=== PATIENT | female | born 1925 | race Caucasian/White ===

== ENCOUNTER 2017-11-29 21:25 | Inpatient (IN) | payer MEDICARE, BC ==
[~2017-11-29] VITALS: Ht 162.6 cm; Wt 50.9 kg
[~2017-11-29 21:25] MED LIST: ATOR40TA71 PO; CARV6.2530 PO; CINA30TA2 PO; CLOP75TA4 PO; LISI-600 PO; LORA0.5T PO; METO-395 PO; NITR0.4T51
[2017-11-29 22:52] LABS: BASOPHILS % (AUTO) 0.5 % (0-1); EOSINOPHILS # (AUTO) 0.5 X10'3 (0-0.9); EOSINOPHILS % (AUTO) 6.8 % (0-6); HEMATOCRIT 34.2 % (35.0-45.0); HEMOGLOBIN 11.7 g/dl (12.0-16.0); LYMPHOCYTES # (AUTO) 2.3 X10'3 (1.1-4.8); LYMPHOCYTES % (AUTO) 30.3 % (21-51); MEAN CORPUSCULAR HEMOGLOBIN 29.9 PG (27.0-31.0); MEAN CORPUSCULAR HGB CONC 34.1 % (33.0-36.5); MEAN CORPUSCULAR VOLUME 87.9 FL (78-98); MEAN PLATELET VOLUME 7.5 FL (7.4-10.4); MONOCYTES # (AUTO) 0.9 X10'3 (0-0.9); MONOCYTES % (AUTO) 11.2 % (2-12); NEUTROPHILS % (AUTO) 51.2 % (42-75); PLATELET COUNT 145 X10'3 (140-440); RED CELL DISTRIBUTION WIDTH 14.4 % (11.5-14.5); WHITE BLOOD COUNT 7.7 X10'3 (4.5-11.0)
[2017-11-29 23:12] LABS: PARTIAL THROMBOPLASTIN TIME 26 SECONDS (22-32)
[2017-11-29 23:15] LABS: ALANINE AMINOTRANSFERASE 22 U/L (12-78); ALBUMIN 3.6 G/DL (3.4-5.0); ALBUMIN/GLOBULIN RATIO 1.2 (1.1-1.5); ALKALINE PHOSPHATASE 34 IU/L (46-116); ANION GAP 8 (8-16); ASPARTATE AMINO TRANSFERASE 22 U/L (10-37); BILIRUBIN,TOTAL 0.4 MG/DL (0.1-1.0); BLOOD UREA NITROGEN 19 MG/DL (7-18); BUN/CREATININE RATIO 23.2 (6.6-38.0); CALCIUM 7.9 MG/DL (8.5-10.1); CHLORIDE 105 MMOL/L (99-107); CREATININE 0.82 MG/DL (0.40-0.90); GLUCOSE 106 MG/DL (70-104); POTASSIUM 3.9 MMOL/L (3.5-5.1); SODIUM 140 MMOL/L (135-145); TOTAL CARBON DIOXIDE 27.5 MMOL/L (24-32); TOTAL PROTEIN 6.6 G/DL (6.4-8.2); eGFR 66 ML/MIN
[2017-11-29] MEDS ORDERED: normal saline 1000ML IV soln IVB ONE (23:45)
[2017-11-29] MEDS ORDERED: magnesium 1 gm/2ml inj. 1 GM in normal saline 50ml IV soln 48 ML IV ONE (23:45)
[2017-11-29] MEDS: potassium chloride 10mEq CAPSULE.SA PO SCH (23:45)
[2017-11-30] MEDS ORDERED: potassium Cl 20 mEq SR tablet PO STA (00:08)
[2017-11-30] MEDS ORDERED: magnesium 1 gm/2ml inj. 1 GM in normal saline 50ml IV soln 48 ML IV ONE ×2 (00:15→00:25)
[2017-11-30] MEDS: potassium chloride 10mEq CAPSULE.SA PO SCH (00:28)
[2017-11-30] MEDS ORDERED: potassium Cl 40MEQ/NS 500ml 500 ML IV PRN ×2 (00:35)
[2017-11-30] MEDS ORDERED: magnesium hydroxide 30ml (MOM) UD suspension PO PRN (00:35)
[2017-11-30] MEDS ORDERED: magnesium 2GM in 50ml NS 50 ML IV PRN (00:35)
[2017-11-30] MEDS ORDERED: ondansetron/PF 4mg/2ml inj IV PRN (00:35)
[2017-11-30] MEDS ORDERED: mag hydrox/Alum hydrox/simeth 30ml oral suspension PO PRN (00:35)
[2017-11-30] MEDS ORDERED: potassium Cl 20 mEq SR tablet PO PRN ×2 (00:35)
[2017-11-30] MEDS ORDERED: magnesium 4gm in 100ml NS 100 ML IV PRN (00:35)
[2017-11-30] MEDS ORDERED: magnesium Cl slow-release 64mg tablet PO PRN (00:35)
[2017-11-30] MEDS ORDERED: HYDROmorphone 1 mg/ml syringe IV PRN ×2 (00:35)
[2017-11-30] MEDS ORDERED: acetaminophen 325mg tablet PO PRN (00:35)
[2017-11-30 01:12] LABS: PHOSPHORUS 3.2 MG/DL (2.3-4.5)
[2017-11-30] MEDS: normal saline 1000ml 1,000 ML IV SCH ×3 (01:37→17:27)
[2017-11-30] MEDS: levoFLOXACIN-Levaquin 750MG/D5 150 ML IV SCH ×2 (01:37→21:13)
[2017-11-30 04:14] VITALS: BP 117/53
[2017-11-30 06:00] VITALS: BP 108/41
[2017-11-30] MEDS ORDERED: carvedilol 6.25mg tablet PO SCH (08:00)
[2017-11-30] MEDS: K and/or MAG REPLACEMENT MC SCH (08:00)
[2017-11-30] MEDS ORDERED: oseltamivir phos 75mg capsule PO SCH (08:00)
[2017-11-30] MEDS: calcium carbonate 500mg chew tablet PO SCH ×3 (08:21→17:21)
[2017-11-30] MEDS: metoprolol succinate 25mg (24-HOUR) SR. Tablet PO SCH (08:21)
[2017-11-30] MEDS: atorvastatin 20mg tablet PO SCH (08:21)
[2017-11-30] MEDS: cinacalcet 30mg tablet PO SCH (08:21)
[2017-11-30] MEDS: heparin, porcine 5000 units/ml vial SQ SCH ×2 (08:21→16:24)
[2017-11-30 11:00] VITALS: BP 108/49
[2017-11-30 12:03] LABS: BASOPHILS % (AUTO) 0.6 % (0-1); EOSINOPHILS # (AUTO) 0.3 X10'3 (0-0.9); EOSINOPHILS % (AUTO) 5.8 % (0-6); HEMATOCRIT 33.7 % (35.0-45.0); HEMOGLOBIN 11.3 g/dl (12.0-16.0); LYMPHOCYTES # (AUTO) 1.7 X10'3 (1.1-4.8); LYMPHOCYTES % (AUTO) 28.5 % (21-51); MEAN CORPUSCULAR HEMOGLOBIN 29.9 PG (27.0-31.0); MEAN CORPUSCULAR HGB CONC 33.5 % (33.0-36.5); MEAN CORPUSCULAR VOLUME 89.3 FL (78-98); MEAN PLATELET VOLUME 8.2 FL (7.4-10.4); MONOCYTES # (AUTO) 0.7 X10'3 (0-0.9); MONOCYTES % (AUTO) 12.1 % (2-12); NEUTROPHILS # (AUTO) 3.2 X10'3 (1.8-7.7); PLATELET COUNT 144 X10'3 (140-440); RED BLOOD COUNT 3.78 X10'6 (4.20-5.60); RED CELL DISTRIBUTION WIDTH 14.4 % (11.5-14.5)
[2017-11-30 12:08] LABS: ALBUMIN 3.1 G/DL (3.4-5.0); ANION GAP 10 (8-16); BLOOD UREA NITROGEN 13 MG/DL (7-18); CALCIUM 7.9 MG/DL (8.5-10.1); CHLORIDE 108 MMOL/L (99-107); CREATININE 0.62 MG/DL (0.40-0.90); GLUCOSE 84 MG/DL (70-104); POTASSIUM 4.3 MMOL/L (3.5-5.1); SODIUM 145 MMOL/L (135-145); TOTAL CARBON DIOXIDE 27.2 MMOL/L (24-32); eGFR > 90 ML/MIN
[2017-11-30 15:00] VITALS: BP 111/54
[2017-11-30] MEDS: lactobacillus rhamnosus 10,000 MMU CELLS/CAPSULE PO SCH (17:21)
[2017-11-30] MEDS ORDERED: guaiFENesin/codeine phos 10ml UD oral syrup PO PRN (17:55)
[2017-11-30] MEDS ORDERED: ipratropium 0.5 MG/2.5ML nebule IH PRN (17:55)
[2017-11-30 19:00] VITALS: BP 114/46
[2017-11-30] MEDS: methylPREDNISolone sod succ/PF 40mg inj. IV SCH (20:50)
[2017-11-30] MEDS ORDERED: temazepam 15mg capsule PO PRN (21:00)
[2017-11-30] MEDS ORDERED: LORazepam 0.5 MG tablet PO SCH (21:00)
[2017-11-30 23:00] VITALS: BP 112/47
[2017-12-01] MEDS: methylPREDNISolone sod succ/PF 40mg inj. IV SCH ×2 (01:41→08:26)
[2017-12-01 03:00] VITALS: BP 114/47
[2017-12-01 06:00] VITALS: BP 99/41
[2017-12-01 06:35] LABS: BASOPHILS % (AUTO) 0.2 % (0-1); EOSINOPHILS # (AUTO) 0.1 X10'3 (0-0.9); EOSINOPHILS % (AUTO) 0.9 % (0-6); HEMATOCRIT 36.2 % (35.0-45.0); HEMOGLOBIN 12.6 g/dl (12.0-16.0); LYMPHOCYTES # (AUTO) 1.1 X10'3 (1.1-4.8); MEAN CORPUSCULAR HGB CONC 34.8 % (33.0-36.5); MEAN CORPUSCULAR VOLUME 89.1 FL (78-98); MEAN PLATELET VOLUME 8.1 FL (7.4-10.4); MONOCYTES # (AUTO) 0.1 X10'3 (0-0.9); NEUTROPHILS # (AUTO) 5.2 X10'3 (1.8-7.7); NEUTROPHILS % (AUTO) 80.9 % (42-75); PLATELET COUNT 146 X10'3 (140-440); RED BLOOD COUNT 4.07 X10'6 (4.20-5.60); RED CELL DISTRIBUTION WIDTH 14.1 % (11.5-14.5); WHITE BLOOD COUNT 6.5 X10'3 (4.5-11.0)
[2017-12-01 06:50] LABS: ALBUMIN 3.2 G/DL (3.4-5.0); ANION GAP 8 (8-16); BLOOD UREA NITROGEN 18 MG/DL (7-18); BUN/CREATININE RATIO 28.1 (6.6-38.0); CALCIUM 8.2 MG/DL (8.5-10.1); CHLORIDE 107 MMOL/L (99-107); CHOL/HDL RATIO 2.4 (0.00-4.99); CHOLESTEROL 188 MG/DL (0-200); CREATININE 0.64 MG/DL (0.40-0.90); GLUCOSE 156 MG/DL (70-104); HDL CHOLESTEROL 80 MG/DL (35-60); LDL CHOLESTEROL 106 MG/DL (50-100); MAGNESIUM 2.2 MG/DL (1.5-2.4); POTASSIUM 3.9 MMOL/L (3.5-5.1); SODIUM 141 MMOL/L (135-145); TOTAL CARBON DIOXIDE 25.9 MMOL/L (24-32); TRIGLYCERIDES 41 MG/DL (20-135); eGFR 87 ML/MIN
[2017-12-01 07:55] LABS: PHOSPHORUS 3.1 MG/DL (2.3-4.5)
[2017-12-01] MEDS: K and/or MAG REPLACEMENT MC SCH (08:00)
[2017-12-01] MEDS: metoprolol succinate 25mg (24-HOUR) SR. Tablet PO SCH (08:25)
[2017-12-01] MEDS: calcium carbonate 500mg chew tablet PO SCH ×2 (08:26→12:30)
[2017-12-01] MEDS: atorvastatin 20mg tablet PO SCH (08:26)
[2017-12-01] MEDS: lactobacillus rhamnosus 10,000 MMU CELLS/CAPSULE PO SCH (08:26)
[2017-12-01] MEDS: cinacalcet 30mg tablet PO SCH (08:26)
[2017-12-01] MEDS: heparin, porcine 5000 units/ml vial SQ SCH ×2 (08:27)
[2017-12-01] MEDS ORDERED: LEVO750T21 PO (10:49)
[2017-12-01] MEDS ORDERED: PRED20TA PO (10:49)
[2017-12-01] MEDS ORDERED: guaiFENesin/codeine oral syrup PO (10:49)
[2017-12-01] MEDS ORDERED: GUAI118L21 PO (10:56)
[2017-12-01 11:00] VITALS: BP 115/52
== END 2017-12-01 13:25 | disposition home or self-care (01) | DRG 641 ==
LOC: ER 21:26 → ED HOLD 11-30 00:31 → PCU 3S 11-30 03:50
PROVIDERS: ADMIT Internal Medicine; ATTEND Internal Medicine
DX: E86.0 Dehydration (principal); I95.9 Hypotension, unspecified; J44.1 Chronic obstructive pulmonary disease with (acute) exacerbation; E78.5 Hyperlipidemia, unspecified; I25.10 Atherosclerotic heart disease of native coronary artery without angina pectoris; J40 Bronchitis, not specified as acute or chronic; I10 Essential (primary) hypertension; Z90.710 Acquired absence of both cervix and uterus; Z95.5 Presence of coronary angioplasty implant and graft; Z88.0 Allergy status to penicillin; Z88.1 Allergy status to other antibiotic agents; Z91.012 Allergy to eggs; Z87.440 Personal history of urinary (tract) infections
CPT/HCPCS: 36415; 71046; 71250; 80048; 80053; 80061; 83735; 83880; 84100; 84443; 84484; 85025; 85610; 85730; 87502; 87503; 93005; 93306; 94760; 99285; J1644; J1956; J2920; J3475; J7030

== ENCOUNTER 2017-12-02 23:13 | Emergency (ER) | payer MEDICARE, BC ==
[~2017-12-02] VITALS: Ht 157.5 cm; Wt 48.8 kg
[~2017-12-02 23:13] MED LIST changes: -CARV6.2530 PO; -CLOP75TA4 PO; +GUAI118L21 PO; +LEVO750T21 PO; -LISI-600 PO; -NITR0.4T51; +PRED20TA PO
[2017-12-03 00:29] VITALS: BP 147/75
== END 2017-12-03 00:30 | disposition home or self-care (01) ==
LOC: ER 23:14
DX: R00.1 Bradycardia, unspecified (principal); I10 Essential (primary) hypertension; I25.10 Atherosclerotic heart disease of native coronary artery without angina pectoris; J44.9 Chronic obstructive pulmonary disease, unspecified; Z88.1 Allergy status to other antibiotic agents; Z88.0 Allergy status to penicillin; Z88.8 Allergy status to other drugs, medicaments and biological substances
CPT/HCPCS: 36415; 84484; 93005; 99285